=== PATIENT | male | born 1960 | race American Indian/Alaskan Native ===

== ENCOUNTER 2018-05-29 20:03 | Inpatient (IN) | payer MEDICAID ==
[2018-05-29 20:21] VITALS: BMI 21.7
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
[2018-05-29 21:18] LABS: INR 1.43; PARTIAL THROMBOPLASTIN TIME 33.7 Seconds (25.1-36.5); PROTHROMBIN TIME 16.4 SECONDS (9.4-12.5)
[2018-05-29 21:20] LABS: HEMOGLOBIN 10.8 g/dL (14.0-18.0); MEAN CELL VOLUME 96.3 fl (80.0-105.0); MEAN CORPUSCULAR HEMOGLOBIN 33.4 pg (25.0-35.0); MEAN CORPUSCULAR HGB CONC 34.7 g/dl (31.0-37.0); MEAN PLATELET VOLUME 13.6 fl (7.0-11.0); RBC 3.23 10^6/uL (3.5-6.1); RED CELL DISTRIBUTION WIDTH 12.5 % (11.5-14.5); WHITE BLOOD COUNT 4.9 10^3/ul (4.5-11.0)
[2018-05-29 21:22] LABS: ALB/GLOB RATIO 0.8 (1.1-1.8); ALBUMIN 4.4 g/dL (3.0-4.8); CALCIUM 8.9 mg/dL (8.4-10.5)
[2018-05-29 21:34] LABS: TROPONIN I 0.02 ng/mL
[2018-05-29 21:38] LABS: CK-MB 1.3 ng/mL (0.0-3.6)
[2018-05-29] MEDS: Folic Acid 1 MG, Thiamine 100 MG, Multivitamin (MVI) 10 ML in Dextrose 5% In Water 1,00... IV SCH (21:58)
[2018-05-30] MEDS ORDERED: Sodium Chloride 0.9% 1,000 ML IV SCH (00:15)
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
[2018-05-30 06:50] LABS: EOS % 0.6 % (1.5-5.0); GRAN # 1.99 (1.4-6.5); HEMOGLOBIN 10.5 g/dL (14.0-18.0); LYMPH # 1.2 (1.2-3.4); LYMPH % 32.7 % (22.0-35.0); MEAN CELL VOLUME 95.6 fl (80.0-105.0); MEAN CORPUSCULAR HGB CONC 34.5 g/dl (31.0-37.0); MEAN PLATELET VOLUME 12.2 fl (7.0-11.0); MONO # 0.4 (0.1-0.6); MONO % 10.7 % (1.0-6.0); RBC 3.18 10^6/uL (3.5-6.1); RED CELL DISTRIBUTION WIDTH 12.4 % (11.5-14.5); WHITE BLOOD COUNT 3.6 10^3/ul (4.5-11.0)
[2018-05-30 06:59] LABS: PLATELET COUNT 40 10^3/uL (120.0-450.0)
[2018-05-30 07:46] LABS: BLOOD UREA NITROGEN 15 mg/dL (7-21); GFR AFRICAN-AMERICAN > 60; GFR NON-AFRICAN AMERICAN > 60
[2018-05-30 07:47] LABS: ALB/GLOB RATIO 0.8 (1.1-1.8); ALBUMIN 3.9 g/dL (3.0-4.8); CALCIUM 8.6 mg/dL (8.4-10.5)
[2018-05-30 07:48] LABS: ALT/SGPT 31 U/L (7-56); AST/SGOT 196 U/L (17-59)
[2018-05-30 08:17] LABS: HDL CHOLESTEROL 46 mg/dL (29-60)
[2018-05-30] MEDS ORDERED: Potassium Chloride 20 mEq ER Tab PO STA (08:27)
[2018-05-30 08:28] LABS: LDL CHOLESTEROL 99 mg/dL (0-129)
[2018-05-30] MEDS: Folic Acid 1 MG, Thiamine 100 MG, Multivitamin (MVI) 10 ML in Dextrose 5% In Water 1,00... IV SCH (09:32)
[2018-05-30] MEDS ORDERED: Thiamine 100 mg/ml Inj IM SCH (10:00)
--- NOTE | 2018-05-30 12:03 | US ---
Date of service: 05/30/2018 HISTORY: cirrhosis COMPARISON: None. TECHNIQUE: Sonographic evaluation of the right upper quadrant of the abdomen. FINDINGS: LIVER: Measures 16.8 cm in length. Diffusely increased echogenicity of the liver parenchyma. Consistent with fatty infiltration. Smooth contour. No mass. No biliary ductal dilatation. GALLBLADDER: Cholelithiasis. No mural thickening. No pericholecystic fluid. Negative sonographic Gong sign. COMMON BILE DUCT: Measures 4 mm. No stones. No dilatation. PANCREAS: Obscured by overlying bowel gas. RIGHT KIDNEY: Measures 13.1 cm in length. Severe hydronephrosis. No change from prior ultrasound of 05/06/2016. AORTA: No aneurysmal dilatation. IVC: Unremarkable. OTHER FINDINGS: None . IMPRESSION: Fatty infiltration of the liver. Cholelithiasis without evidence of cholecystitis. Severe right hydronephrosis, long-standing.
--- NOTE | 2018-05-30 12:20 | RAD ---
Date of service: 05/29/2018 HISTORY: tremors COMPARISON: 05/14/2016 FINDINGS: LUNGS: No active pulmonary disease. PLEURA: No significant pleural effusion identified, no pneumothorax apparent. CARDIOVASCULAR: Normal. OSSEOUS STRUCTURES: No significant abnormalities. VISUALIZED UPPER ABDOMEN: Normal. OTHER FINDINGS: None. IMPRESSION: No active disease.
[2018-05-30 13:01] LABS: HEPATITIS B SURFACE AG Negative (NEGATIVE)
[2018-05-30 13:07] LABS: HEPATITIS A IGM NEGATIVE (NEGATIVE); HEPATITIS B CORE AB NEGATIVE (NEGATIVE)
[2018-05-30 13:19] LABS: HEPATITIS C ANTIBODY NEGATIVE (NEGATIVE)
[2018-05-30 13:46] LABS: FOLATE 11.1 ng/mL
--- NOTE | 2018-05-30 15:39 | CARD ---
APPROVED REPORT Date of service: 05/29/2018 EKG Measurement Heart [id number] <Conclusion> Normal sinus rhythm Minimal voltage criteria for LVH, may be normal variant Septal infarct, age undetermined ST & T wave abnormality, consider inferior ischemia ST & T wave abnormality, consider anterolateral ischemia Abnormal ECG
[2018-05-31 06:10] LABS: URINE APPEARANCE CLEAR (CLEAR); URINE BILIRUBIN NEGATIVE (NEGATIVE); URINE BLOOD NEGATIVE (NEGATIVE); URINE COLOR YELLOW (YELLOW); URINE GLUCOSE (UA) NEGATIVE (NEGATIVE); URINE LEUKOCYTE ESTERASE NEGATIVE Leu/uL (NEGATIVE); URINE PROTEIN NEGATIVE mg/dL (<30 mg/dL)
[2018-05-31 06:32] LABS: CREATININE,RANDOM URINE 57 mg/dL
[2018-05-31 07:02] LABS: BASO # 0.01 K/mm3 (0.0-2.0); BASO % 0.3 % (0.0-3.0); EOS % 0.6 % (1.5-5.0); GRAN # 2.3 (1.4-6.5); GRAN % 63.8 % (50.0-68.0); HEMOGLOBIN 11.7 g/dL (14.0-18.0); LYMPH # 0.9 (1.2-3.4); LYMPH % 25.3 % (22.0-35.0); MEAN CELL VOLUME 96.3 fl (80.0-105.0); MEAN CORPUSCULAR HEMOGLOBIN 33.3 pg (25.0-35.0); MEAN CORPUSCULAR HGB CONC 34.6 g/dl (31.0-37.0); MEAN PLATELET VOLUME 13.3 fl (7.0-11.0); MONO # 0.4 (0.1-0.6); RBC 3.51 10^6/uL (3.5-6.1); RED CELL DISTRIBUTION WIDTH 12.4 % (11.5-14.5); WHITE BLOOD COUNT 3.6 10^3/ul (4.5-11.0)
[2018-05-31 07:22] LABS: ALB/GLOB RATIO 0.7 (1.1-1.8); ALBUMIN 4.1 g/dL (3.0-4.8); ALT/SGPT 33 U/L (7-56); AST/SGOT 193 U/L (17-59); BLOOD UREA NITROGEN 18 mg/dL (7-21); CALCIUM 8.9 mg/dL (8.4-10.5); GFR AFRICAN-AMERICAN > 60; GFR NON-AFRICAN AMERICAN > 60
[2018-05-31] MEDS: Multivitamin Therapeutic Tab PO SCH (11:17)
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
[2018-05-31 19:08] LABS: FOLATE 14.3 ng/mL
[2018-05-31] MEDS: Pantoprazole 40 mg EC Tab PO SCH (21:51)
--- NOTE | 2018-06-01 04:04 | CON ---
DATE: 05/31/2018 HISTORY OF PRESENT ILLNESS: In short, the patient is a 58-year-old male with history of alcohol use disorder, multiple medical issues due to that problem. The patient brought himself to the hospital for evaluation of upper extremity tremor and the patient had injured his nose. Psych consult was called for evaluation of depressive symptoms. The patient also has history of alcohol use disorder and was seen by psychiatrist in the past. The patient was seen and examined. The patient is very familiar to this securities underwriter from the previous consultation services here in [place]. The patient is chronic alcoholic; last time, the patient had delirium tremens, hallucinations and the patient required prolonged hospitalization back then. The patient does not remember this securities underwriter. The patient presented to be alert. There is some fine tremor in the upper extremities. The patient obviously minimizing his alcohol consumption. The patient reported that he drinks only 3 beers a day, 24 ounces. The patient reported that he started to drink at the age of 15 when his mother . The patient reported that he had couple of detoxes and rehabs, last time was in 2015. The patient stayed in the rehab for a couple of months, but relapsed on alcohol within 3 weeks. The patient reports that he does not have any withdrawal symptoms if he would stop drinking, but obviously it is incorrect information. The patient denied being depressed. The patient denied feeling anxious. The patient denied thoughts of killing himself or others. The patient denied hearing voices, denied seeing things, denied paranoid ideation, but in the past, patient had delirium tremens. The patient denied smoking. The patient denied using any other drugs. VITAL SIGNS: Stable. Temperature 97.7, pulse is 71, blood pressure 105/74, respiration 20, oxygen saturation is 94%. MEDICATIONS: Reviewed. The patient is on Norvasc, Colace, folic acid, Ativan, multivitamins, nadolol, Protonix, Seroquel was started by medical team 50 mg twice a day, Flomax 0.4 mg daily and thiamine 100 mg daily. LABORATORY DATA: Reviewed. WBC cells 3.6, hemoglobin and hematocrit 11.7 and 33.8. Coagulations reviewed. Chemistry reviewed. AST and ALT are 193 and 33 respectively. Urinalysis reviewed. Toxicology reviewed. Alcohol was 135 at the time of admission. MENTAL STATUS EXAMINATION: The patient appears to be alert and oriented only in self . The patient saying that right now it is 03/30/2016. The patient was re-oriented. The patient has intermittent eye contact. Speech was somewhat slurred. Mood described "I am fine." Affect was constricted, but reactive. Mood congruent. Thought process seems to be concrete. Thought content, the patient denied visual, auditory or tactile hallucinations. Denied paranoid ideation. The patient denied thoughts of harming himself or others. Denied intents or plan. Insight and judgment into alcohol addiction is very limited. Impulses are well controlled. IMPRESSION: Alcohol use disorder, withdrawal symptoms are under control. PLAN: Multivitamins, thiamine and folic acid, CIWA protocol. Seroquel should be continued as of now. Discussed with Dr. Dos Santos. The patient had history of delirium tremens in the past. Please be aware that the patient is prone to have delirium tremens, seizure precaution should be initiaed. The patient does not want to go to inpatient rehab. The patient does not want to be seen by psychiatrist. The patient does not want to be on any naltrexone or antabuse as of now. This securities underwriter will sign off. Thank you very much for letting me participate in care of your patient. The patient not in any acute danger to self or others, re-consult as needed. Amy Yo MD ANDREA
[2018-06-01 07:18] LABS: EOS % 1.1 % (1.5-5.0); GRAN # 2.32 (1.4-6.5); HEMOGLOBIN 10.2 g/dL (14.0-18.0); LYMPH # 0.9 (1.2-3.4); LYMPH % 24.7 % (22.0-35.0); MEAN CELL VOLUME 96.1 fl (80.0-105.0); MEAN CORPUSCULAR HGB CONC 34.3 g/dl (31.0-37.0); MEAN PLATELET VOLUME 12.4 fl (7.0-11.0); MONO # 0.5 (0.1-0.6); MONO % 13.2 % (1.0-6.0); RBC 3.09 10^6/uL (3.5-6.1); RED CELL DISTRIBUTION WIDTH 12.3 % (11.5-14.5); WHITE BLOOD COUNT 3.8 10^3/ul (4.5-11.0)
[2018-06-01 07:39] LABS: ALB/GLOB RATIO 0.7 (1.1-1.8); ALBUMIN 3.6 g/dL (3.0-4.8); ALT/SGPT 35 U/L (7-56); AST/SGOT 142 U/L (17-59); BLOOD UREA NITROGEN 18 mg/dL (7-21); CALCIUM 8.9 mg/dL (8.4-10.5); GFR AFRICAN-AMERICAN > 60; GFR NON-AFRICAN AMERICAN > 60
[2018-06-01 09:20] VITALS: PULSE 72; RESP 18; TEMP 97.6; O2SAT 99
[2018-06-01] MEDS: Pantoprazole 40 mg EC Tab PO SCH (09:41)
[2018-06-01] MEDS: Multivitamin Therapeutic Tab PO SCH (09:42)
[2018-06-01 09:48] VITALS: BP 146/72
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
== END 2018-06-01 13:24 | DRG 750 ==
LOC: ED 20:03 → ERH 21:51 → 2RNO 05-30 01:19 → OBSVTOIN 05-30 15:30 → 3RSO 05-30 17:53
PROVIDERS: ADMIT Internal Medicine; ATTEND Internal Medicine
PROC: 0HQ1XZZ Repair Face Skin, External Approach (ICD-10-PCS; principal; 2018-05-30)
DX: F10.239 Alcohol dependence with withdrawal, unspecified (principal); D61.818 Other pancytopenia; N13.30 Unspecified hydronephrosis; D69.59 Other secondary thrombocytopenia; Y90.6 Blood alcohol level of 120-199 mg/100 ml; I10 Essential (primary) hypertension; S01.21XA Laceration without foreign body of nose, initial encounter; W22.8XXA Striking against or struck by other objects, initial encounter; K59.00 Constipation, unspecified; Y92.009 Unspecified place in unspecified non-institutional (private) residence as the place of occurrence of the external cause; Z78.1 Physical restraint status; Z96.641 Presence of right artificial hip joint; Z87.891 Personal history of nicotine dependence; F41.9 Anxiety disorder, unspecified; I86.4 Gastric varices